=== PATIENT | male | born 1950 | race Caucasian/White ===

== ENCOUNTER → 2016-10-20 | Outpatient (REF) | payer OTHER ==
[2016-10-20 12:15] LABS: MEAN CORPUSCULAR HEMOGLOBIN 32.7 pg (27.0-33.0); MEAN CORPUSCULAR HGB CONC 33.5 g/dl (32.0-36.5); MEAN CORPUSCULAR VOLUME 97.6 fl (80.0-96.0); RED CELL DISTRIBUTION WIDTH 14.6 % (11.5-14.5)
[2016-10-20 12:53] LABS: ALBUMIN 4.3 GM/DL (3.2-5.2); ALBUMIN/GLOBULIN RATIO 1.23 (1.00-1.93); BILIRUBIN,TOTAL 0.8 MG/DL (0.2-1.0); CALCIUM LEVEL 9.9 MG/DL (8.8-10.2); CREATININE FOR GFR 2.2 MG/DL (0.70-1.30); GLOMERULAR FILTRATION RATE 31.9 (>49); POTASSIUM SERUM 4.6 MEQ/L (3.5-5.1); TOTAL PROTEIN 7.8 GM/DL (6.4-8.2); URIC ACID 4.8 MG/DL (3.5-7.2)
== END ==
LOC: M LABDRAW1 11:44
PROVIDERS: ATTEND Family Medicine
DX: I10 Essential (primary) hypertension (principal); M10.9 Gout, unspecified

== ENCOUNTER → 2017-03-17 | Outpatient (REF) | payer OTHER ==
[2017-03-17 12:34] LABS: BASO # 0.1 10^3/uL (0.0-0.2); BASO % 0.7 % (0.0-1.0); EOS # 0.4 10^3/uL (0.0-0.50); IMMATURE GRANULOCYTE % 0.7 % (0-0); LYMPH # 2.2 10^3/uL (1.5-4.5); LYMPH % 23.7 % (24.0-44.0); MEAN CORPUSCULAR HEMOGLOBIN 32.2 pg (27.0-33.0); MEAN CORPUSCULAR HGB CONC 32.8 g/dl (32.0-36.5); MEAN CORPUSCULAR VOLUME 98.2 fl (80.0-96.0); MONO # 0.6 10^3/uL (0.0-0.8); MONO % 6.9 % (0.0-5.0); NEUTROPHILS # 5.9 10^3/uL (1.8-7.7); PLATELET COUNT, AUTOMATED 236 10^3/uL (150-450); WHITE BLOOD COUNT 9.2 10^3/uL (4.0-10.0)
[2017-03-17 13:20] LABS: ALBUMIN 3.9 GM/DL (3.2-5.2); ALBUMIN/GLOBULIN RATIO 1.15 (1.00-1.93); BILIRUBIN,TOTAL 0.7 MG/DL (0.2-1.0); CALCIUM LEVEL 9.6 MG/DL (8.8-10.2); CREATININE FOR GFR 2.11 MG/DL (0.70-1.30); GLOMERULAR FILTRATION RATE 33.5 (>49); TOTAL PROTEIN 7.3 GM/DL (6.4-8.2)
== END ==
LOC: M LABDRAW1 12:02
PROVIDERS: ATTEND Family Medicine
DX: R55 Syncope and collapse (principal)

== ENCOUNTER → 2017-12-18 | Outpatient (REF) | payer OTHER ==
[2017-12-18 12:09] LABS: BASO # 0.1 10^3/uL (0.0-0.2); BASO % 0.6 % (0.0-1.0); EOS # 0.3 10^3/uL (0.0-0.50); EOS % 3.4 % (0.0-3.0); HEMATOCRIT 41.6 % (42.0-52.0); HEMOGLOBIN 13.8 g/dl (13.5-17.5); IMMATURE GRANULOCYTE % 0.5 % (0-3.0); LYMPH # 2.3 10^3/uL (1.5-4.5); LYMPH % 27.7 % (24.0-44.0); MEAN CORPUSCULAR HEMOGLOBIN 31.9 pg (27.0-33.0); MEAN CORPUSCULAR HGB CONC 33.2 g/dl (32.0-36.5); MEAN CORPUSCULAR VOLUME 96.1 fl (80.0-96.0); MONO # 0.5 10^3/uL (0.0-0.8); NEUTROPHILS # 5.1 10^3/uL (1.8-7.7); NEUTROPHILS % 61.8 % (36.0-66.0); PLATELET COUNT, AUTOMATED 180 10^3/uL (150-450); RED BLOOD COUNT 4.33 10^6/uL (4.30-6.10); WHITE BLOOD COUNT 8.2 10^3/uL (4.0-10.0)
[2017-12-18 12:24] LABS: ALBUMIN 3.7 GM/DL (3.2-5.2); ALBUMIN/GLOBULIN RATIO 1.06 (1.00-1.93); ALKALINE PHOSPHATASE 104 U/L (45-117); ALT/SGPT 32 U/L (12-78); ANION GAP 5 MEQ/L (8-16); AST/SGOT 19 U/L (7-37); BILIRUBIN,TOTAL 0.7 MG/DL (0.2-1.0); BLOOD UREA NITROGEN 34 MG/DL (7-18); CALCIUM LEVEL 9.1 MG/DL (8.8-10.2); CARBON DIOXIDE LEVEL 30 MEQ/L (21-32); CHLORIDE LEVEL 109 MEQ/L (98-107); CHOLESTEROL LEVEL 130 MG/DL (<200); CHOLESTEROL RISK RATIO 3.333 (<5); CREATININE FOR GFR 2.13 MG/DL (0.70-1.30); GLOMERULAR FILTRATION RATE 33.1 (>49); GLUCOSE, FASTING 88 MG/DL (70-100); HDL CHOLESTEROL 39 MG/DL (>40); LDL CHOLESTEROL 63.8 MG/DL (<100); NON-HDL-C 91 MG/DL; POTASSIUM SERUM 4.7 MEQ/L (3.5-5.1); SODIUM LEVEL 144 MEQ/L (136-145); TOTAL PROTEIN 7.2 GM/DL (6.4-8.2); TRIGLYCERIDES LEVEL 136 MG/DL (<150); URIC ACID 4.4 MG/DL (3.5-7.2)
== END ==
LOC: M LABDRAW1 10:29
DX: M10.9 Gout, unspecified (principal); I10 Essential (primary) hypertension
CPT/HCPCS: 84550

== ENCOUNTER → 2018-12-20 | Outpatient (REF) | payer OTHER ==
[2018-12-20 14:30] LABS: BASO # 0.1 10^3/uL (0.0-0.2); BASO % 0.5 % (0.0-1.0); EOS # 0.3 10^3/uL (0.0-0.50); EOS % 3.4 % (0.0-3.0); HEMATOCRIT 42.3 % (42.0-52.0); HEMOGLOBIN 13.6 g/dl (13.5-17.5); LYMPH # 2.1 10^3/uL (1.5-4.5); LYMPH % 21.9 % (24.0-44.0); MEAN CORPUSCULAR HEMOGLOBIN 32.6 pg (27.0-33.0); MEAN CORPUSCULAR HGB CONC 32.2 g/dl (32.0-36.5); MEAN CORPUSCULAR VOLUME 101.4 fl (80.0-96.0); MONO # 0.7 10^3/uL (0.0-0.8); NEUTROPHILS # 6.4 10^3/uL (1.8-7.7); NEUTROPHILS % 66.5 % (36.0-66.0); PLATELET COUNT, AUTOMATED 183 10^3/uL (150-450); RED BLOOD COUNT 4.17 10^6/uL (4.30-6.10); WHITE BLOOD COUNT 9.6 10^3/uL (4.0-10.0)
[2018-12-20 14:39] LABS: ALBUMIN 3.9 GM/DL (3.2-5.2); BILIRUBIN,TOTAL 0.8 MG/DL (0.2-1.0); CALCIUM LEVEL 9.6 MG/DL (8.8-10.2); CHOLESTEROL RISK RATIO 3.473 (<5); CREATININE FOR GFR 2.52 MG/DL (0.70-1.30); GLOMERULAR FILTRATION RATE 27.1 (>49); POTASSIUM SERUM 5.4 MEQ/L (3.5-5.1); PROSTATIC SPECIFIC AG MONITOR 1.25 NG/ML (< 4.00); TOTAL PROTEIN 7.4 GM/DL (6.4-8.2)
== END ==
LOC: M LABDRAW1 14:00
PROVIDERS: ATTEND Family Medicine
DX: Z12.5 Encounter for screening for malignant neoplasm of prostate (principal); I10 Essential (primary) hypertension; M10.9 Gout, unspecified

== ENCOUNTER → 2019-02-23 | Outpatient (CLI) | payer MEDICARE ==
--- NOTE | 2019-02-23 15:54 | REP ---
RENAL NUCLEAR SCAN WITH FLOW AND FUNCTION: Following the intravenous administration of 8.0 mCi of technetium-99m MAG 3 immediate flow images are obtained in the posterior projection showing somewhat greater degree of perfusion of right kidney compared to the left. Delayed renal function images are performed every minute for a period of 30 minutes. No cortical defect is seen. There is bilateral excretion in a fairly symmetrical pattern without evidence of significant hydronephrosis. There is bilateral symmetrical washout. Split function is 40.3% on the left and 59.7% on the right. Time to peak is 4 minutes bilaterally which is slightly delayed. T1/2 is 26 minutes on the left and 25.5 minutes on the right, both values elevated above normal of 11 minutes. Renal function curves are mildly shallow in their downward slopes. There is mild postvoid residual in the urinary bladder after voiding. IMPRESSION: No evidence of urinary tract obstruction. Mildly compromised renal function bilaterally. Electronically Signed by Dillon Alvarez MD 02/25/2019 01:00 A
--- NOTE | 2019-02-23 18:29 | REP ---
Clinical: Chronic renal disease and hypertension. Technique: Real time barger scale ultrasound examination using curved array transducer. Findings: Bilateral kidneys appear mildly atrophic with cortical thinning and increased central sinus fat. No hydronephrosis, nephrolithiasis, or mass lesion appreciated. The right kidney measures 9.3 x 5.1 x 5.8 cm and includes 9 mm mid/upper pole cyst, 1.3 cm mid pole cortical cyst, and 2.2 cm medial lower pole hypoechoic area of uncertain etiology. The left kidney measures 10.1 x 4.2 x 6.0 cm and includes a 8 mm cortical cyst. Bladder is grossly unremarkable. Impression: Evidence for chronic medical renal disease with few scattered subcentimeter cysts and 2.2 cm hypoechoic area in the mid pole right kidney which may represent complex cyst, but further investigation including pre and postcontrast CT may be warranted. Electronically Signed by Ross Latif MD 02/23/2019 06:21 P
== END ==
LOC: M RAD 12:36
PROVIDERS: ATTEND Internal Medicine Nephrology
DX: N28.1 Cyst of kidney, acquired (principal); N18.4 Chronic kidney disease, stage 4 (severe); I15.0 Renovascular hypertension
CPT/HCPCS: 76775; 78707; A9562

== ENCOUNTER → 2019-12-16 | Outpatient (REF) | payer MEDICARE ==
[~2019-12-16] MED LIST: ATOR1TAB21 PO; GABA600T4 PO; LISI20TA35 PO; MAGN400T14 PO; METO1TAB7 PO; ZYLO300T6 PO
[2020-02-02 18:49] LABS: HEMATOCRIT 40.9 % (42.0-52.0); HEMOGLOBIN 13.2 g/dl (13.5-17.5); MEAN CORPUSCULAR HEMOGLOBIN 32.3 pg (27.0-33.0); MEAN CORPUSCULAR HGB CONC 32.3 g/dl (32.0-36.5); PLATELET COUNT, AUTOMATED 185 10^3/uL (150-450); RED BLOOD COUNT 4.09 10^6/uL (4.30-6.10)
[2020-02-10 16:45] LABS: BILIRUBIN,TOTAL 0.6 MG/DL (0.2-1.0); CALCIUM LEVEL 9.9 MG/DL (8.8-10.2); CHOLESTEROL RISK RATIO 4.937 (<5); CREATININE FOR GFR 2.54 MG/DL (0.70-1.30); GLOMERULAR FILTRATION RATE 26.8 (>42); MAGNESIUM LEVEL 2.1 MG/DL (1.8-2.4); POTASSIUM SERUM 4.8 MEQ/L (3.5-5.1); TOTAL PROTEIN 7.6 GM/DL (6.4-8.2); URIC ACID 5.7 MG/DL (3.5-7.2)
== END ==
LOC: M LABWUC 07:46
PROVIDERS: ATTEND Family Medicine
DX: E78.5 Hyperlipidemia, unspecified (principal); M10.9 Gout, unspecified; E61.2 Magnesium deficiency; I10 Essential (primary) hypertension

== ENCOUNTER 2020-02-02 17:29 | Emergency (ER) | payer MEDICARE ==
[~2020-02-02] VITALS: Ht 180.3 cm; Wt 104.5 kg
[2020-02-02] MEDS ORDERED: ATOR1TAB21 PO (17:41)
[2020-02-02] MEDS ORDERED: METO1TAB7 PO (17:41)
[2020-02-02] MEDS ORDERED: GABA600T4 PO (17:41)
[2020-02-02] MEDS ORDERED: LISI20TA35 PO (17:41)
[2020-02-02] MEDS ORDERED: ZYLO300T6 PO (17:41)
[2020-02-02] MEDS ORDERED: MAGN400T14 PO (17:44)
--- NOTE | 2020-02-02 19:13 | REPVR ---
PROCEDURE INFORMATION: Exam: XR Right Femur Exam date and time: 02/02/2020 6:35 PM Age: 69 years old Clinical indication: Injury or trauma; Fall; Sprain or strain; Thigh or upper leg; Right; Additional info: Fall, bony tenderness TECHNIQUE: Imaging protocol: XR Right femur. Views: 2 views. COMPARISON: No relevant prior studies available. FINDINGS: Bones/joints: Unremarkable. No acute fracture. Soft tissues: Unremarkable. IMPRESSION: No acute findings. Electronically signed by: Jacob Cowan On 02/02/2020 19:12:30 PM
[2020-02-02 19:39] VITALS: BP 130/63
== END 2020-02-02 19:46 | disposition home or self-care (01) ==
LOC: M ED 17:29
DX: M25.551 Pain in right hip (principal); M79.651 Pain in right thigh; W10.8XXA Fall (on) (from) other stairs and steps, initial encounter; Y92.098 Other place in other non-institutional residence as the place of occurrence of the external cause; Y93.01 Activity, walking, marching and hiking; Y99.8 Other external cause status; I10 Essential (primary) hypertension; Z79.899 Other long term (current) drug therapy

== ENCOUNTER → 2020-02-17 | Outpatient (CLI) | payer MEDICARE ==
--- NOTE | 2020-02-17 12:25 | REPVR ---
PROCEDURE INFORMATION: Exam: US Duplex Right Lower Extremity Veins, Limited Exam date and time: 02/17/2020 12:02 PM Age: 69 years old Clinical indication: Pain; Leg, lower; Right; Additional info: Edema, pain in right leg; rule out DVT, fell 2 weeks ago TECHNIQUE: Imaging protocol: Real-time Duplex ultrasound of the Right Lower Extremity with 2-D barger scale, color Doppler flow and spectral waveform analysis with image documentation. Limited exam was focused on the right lower extremity veins. COMPARISON: No relevant prior studies available. FINDINGS: Right deep veins: The common femoral, femoral, and popliteal veins are patent without thrombus. Normal compressibility and/or augmentation response. Right superficial veins: The saphenofemoral junction is patent without thrombus. Soft tissues: Unremarkable. IMPRESSION: No evidence of deep vein thrombosis in the visualized lower extremity. Electronically signed by: Neo Quintero On 02/17/2020 12:25:24 PM
== END ==
LOC: M RAD 11:31
PROVIDERS: ATTEND Family Medicine
DX: R60.9 Edema, unspecified (principal); M79.601 Pain in right arm

== ENCOUNTER → 2020-04-13 | Outpatient (CLI) | payer MEDICARE ==
--- NOTE | 2020-04-13 08:30 | REP ---
INDICATION: CKD STAGE 4. COMPARISON: Comparison urinary tract sonography February 23, 2019.. TECHNIQUE: Urinary tract sonography. FINDINGS: Urinary bladder is largely empty at the time of scanning.. Renal cortical echogenicity pattern is normal bilaterally and contours are smooth. There are bilateral small renal cortical cysts. No evidence of hydronephrosis mass or calculus is seen.. The right kidney measures 9.4 x 4.8 x 5.2 cm. Left renal dimensions are 10.3 x 4.0 x 5.8 cm. There are multiple upper pole cysts on the left ranging in size up to 1.5 cm in greatest diameter. In the right kidney there are 3 identified as cysts in the upper pole the largest of which measures 2.0 cm in greatest diameter IMPRESSION: Bilateral small renal cortical cysts. Otherwise negative. No other significant change.. <Electronically signed by Lawrence Retana > 04/13/20 [id number]
== END ==
LOC: M RAD 07:29
PROVIDERS: ATTEND Internal Medicine Nephrology
DX: N28.1 Cyst of kidney, acquired (principal); N18.4 Chronic kidney disease, stage 4 (severe)

== ENCOUNTER → 2021-05-01 | Outpatient (CLI) | payer MEDICARE ==
[~2021-05-01] MED LIST changes: +ALLO300T2 PO; +CARB1TAB20 PO; +MAGN400T35 PO; +META1TAB22 PO
== END ==
LOC: M LABSMTC 09:37
PROVIDERS: ATTEND Anesthesiology
DX: Z01.818 Encounter for other preprocedural examination (principal); Z11.52 Encounter for screening for COVID-19

== ENCOUNTER 2021-05-06 10:09 | Day surgery (SDC) | payer MEDICARE ==
[~2021-05-06] VITALS: Ht 180.3 cm; Wt 107.2 kg
[~2021-05-06 10:09] MED LIST changes: +NS 1,000 ML IV ONE
--- NOTE | 2021-05-06 12:14 | ROOR ---
Patient Name: Blair Bergman Procedure Date: 05/06/2021 11:52 AM Date of : 1950 Age: 70 Room: [facility] Gender: Male Note Status: Finalized Procedure: Total Colonoscopy to Cecum + Cold Snare Polypectomy + ileoscopy Indications: Screening for colorectal malignant neoplasm Providers: Lam Garza MD Referring MD: Attila Moreno MD Requesting Provider: Medicines: Monitored Anesthesia Care Complications: No immediate complications. Procedure: Pre-Anesthesia Assessment: - The heart rate, respiratory rate, oxygen saturations, blood pressure, adequacy of pulmonary ventilation, and response to care were monitored throughout the procedure. The Colonoscope was introduced through the anus and advanced to the terminal ileum, with identification of the appendiceal orifice and IC valve. The colonoscopy was performed without difficulty. The patient tolerated the procedure well. The quality of the bowel preparation was excellent. Findings: The perianal and digital rectal examinations were normal. Non-bleeding internal hemorrhoids were found during retroflexion. The hemorrhoids were small and Grade I (internal hemorrhoids that do not prolapse). A small polyp was found in the ascending colon. The polyp was sessile. The polyp was removed with a cold snare. Resection and retrieval were complete. The terminal ileum appeared normal. The exam was otherwise without abnormality on direct and retroflexion views. Impression: - Non-bleeding internal hemorrhoids. - One small polyp in the ascending colon, removed with a cold snare. Resected and retrieved. - The examined portion of the ileum was normal. - The examination was otherwise normal on direct and retroflexion views. - The exam was otherwise normal to the cecum. Recommendation: - Patient has a contact number available for emergencies. The signs and symptoms of potential delayed complications were discussed with the patient. Return to normal activities tomorrow. Written discharge instructions were provided to the patient. - High fiber diet. - Discharge patient to home. - Continue present medications. - Await pathology results. - Telephone GI clinic for pathology results in 1 week. - Repeat colonoscopy in 5 years for surveillance based on pathology results. - Return to referring physician. - The findings and recommendations were discussed with the patient. Procedure Code(s): --- Professional --- 64741, Colonoscopy, flexible; with removal of tumor(s), polyp(s), or other lesion(s) by snare technique Diagnosis Code(s): --- Professional --- Z12.11, Encounter for screening for malignant neoplasm of colon K64.0, First degree hemorrhoids K63.5, Polyp of colon CPT copyright 2019 [employer]. All rights reserved. The codes documented in this report are preliminary and upon statistician applied review may be revised to meet current compliance requirements. Lam Garza MD Lam Garza MD 05/06/2021 12:13:42 PM Electronically signed by Lam Garza MD Number of Addenda: 0 Note Initiated On: 05/06/2021 11:52 AM Estimated Blood Loss: Estimated blood loss: none.
[2021-05-06] MEDS ORDERED: LIDOCAINE 2% 100MG/5ML SDV (FOR ANES.) As Ordered ONE (12:16)
[2021-05-06] MEDS ORDERED: propofoL 200 MG/20 ML VIAL As Ordered ONE (12:16)
[2021-05-06 12:30] VITALS: BP 111/59
== END 2021-05-06 12:49 | disposition home or self-care (01) ==
LOC: M OPP 10:09
PROVIDERS: ATTEND Internal Medicine Gastroenterology
DX: Z12.11 Encounter for screening for malignant neoplasm of colon (principal); D12.6 Benign neoplasm of colon, unspecified; K64.0 First degree hemorrhoids; Z79.899 Other long term (current) drug therapy

== ENCOUNTER → 2021-10-14 | Outpatient (REF) | payer MEDICARE ==
[~2021-10-14] MED LIST changes: -NS 1,000 ML IV ONE
== END ==
LOC: M SFHCDERM 14:55
PROVIDERS: ATTEND Nurse Practitioner Family
DX: C44.622 Squamous cell carcinoma of skin of right upper limb, including shoulder (principal)

== ENCOUNTER → 2022-01-02 | Outpatient (REF) | payer MEDICARE | LOC: M SFHCDERM 16:46 | PROVIDERS: ATTEND Dermatology | DX: C44.622 Squamous cell carcinoma of skin of right upper limb, including shoulder (principal) ==

== ENCOUNTER → 2022-01-07 | Outpatient (CLI) | payer MEDICARE | LOC: M ONCR 14:48 | PROVIDERS: ATTEND General Practice | DX: C44.622 Squamous cell carcinoma of skin of right upper limb, including shoulder (principal); E78.5 Hyperlipidemia, unspecified; I10 Essential (primary) hypertension; M10.9 Gout, unspecified; Z79.899 Other long term (current) drug therapy; Z94.5 Skin transplant status ==

== ENCOUNTER → 2022-01-31 | Outpatient (RCR) | payer MEDICARE | LOC: M ONCR 01-15 07:13 | PROVIDERS: ATTEND General Practice | DX: C44.622 Squamous cell carcinoma of skin of right upper limb, including shoulder (principal) ==

== ENCOUNTER 2022-03-03 14:34 | Outpatient (RCR) | payer MEDICARE | END 2022-03-03 23:59 | disposition home or self-care (01) | LOC: M ONCR 14:34 | PROVIDERS: ATTEND General Practice | DX: C44.622 Squamous cell carcinoma of skin of right upper limb, including shoulder (principal) ==

== ENCOUNTER 2022-03-04 14:44 | Outpatient (RCR) | payer MEDICARE | END 2022-04-02 | LOC: M ONCR 14:44 | PROVIDERS: ATTEND General Practice | DX: C44.622 Squamous cell carcinoma of skin of right upper limb, including shoulder (principal) ==

== ENCOUNTER → 2022-04-04 | Outpatient (CLI) | payer MEDICARE | LOC: M ONCR 13:15 | PROVIDERS: ATTEND General Practice | DX: C44.622 Squamous cell carcinoma of skin of right upper limb, including shoulder (principal); Z92.3 Personal history of irradiation ==

== ENCOUNTER → 2022-06-10 | Outpatient (REF) | payer MEDICARE | LOC: M SFHCDERM 14:14 | PROVIDERS: ATTEND Physician Assistant | DX: L82.1 Other seborrheic keratosis (principal); L57.0 Actinic keratosis; Z12.83 Encounter for screening for malignant neoplasm of skin; Z85.89 Personal history of malignant neoplasm of other organs and systems; D18.01 Hemangioma of skin and subcutaneous tissue | CPT/HCPCS: 11102; 17000; 17003; 88305; G0463 ==

== ENCOUNTER → 2022-09-05 | Outpatient (CLI) | payer MEDICARE | LOC: M ONCR 13:05 | PROVIDERS: ATTEND General Practice | DX: Z08 Encounter for follow-up examination after completed treatment for malignant neoplasm (principal); Z85.828 Personal history of other malignant neoplasm of skin; Z79.899 Other long term (current) drug therapy; Z92.3 Personal history of irradiation; Z92.89 Personal history of other medical treatment ==

== ENCOUNTER → 2023-07-08 | Outpatient (REF) | payer MEDICARE ==
[2023-07-08 15:10] LABS: CHOLESTEROL RISK RATIO 4.15 (<5); LDL CHOLESTEROL 76.4 MG/DL (<100)
== END ==
LOC: M LABWUC 12:26
PROVIDERS: ATTEND Family Medicine
DX: E78.5 Hyperlipidemia, unspecified (principal)

== ENCOUNTER 2024-12-29 15:43 | Emergency (ER) | payer MEDICARE ==
[~2024-12-29] VITALS: Ht 180.3 cm; Wt 104.5 kg
[~2024-12-29 15:43] MED LIST changes: +GABA-1490 PO; -GABA600T4 PO; +META-10 PO; -META1TAB22 PO
[2024-12-29] MEDS: ACETAMINOPHEN 500 MG TAB PO ONE (17:21)
[2024-12-29] MEDS ORDERED: ROLLMIS8 XX (17:21)
[2024-12-29 17:31] VITALS: BP 139/65; TEMP 97.8; O2SAT 97
[2024-12-29] MEDS: TETANUS/DIPHTH/ACEL. PERTUSSIS 0.5 ML SYR IM.IMMUN ONE (17:32)
== END 2024-12-29 17:39 | disposition home or self-care (01) ==
LOC: M ED 15:43
DX: S80.212A Abrasion, left knee, initial encounter (principal); W10.8XXA Fall (on) (from) other stairs and steps, initial encounter; Y92.009 Unspecified place in unspecified non-institutional (private) residence as the place of occurrence of the external cause; Y93.89 Activity, other specified; Y99.9 Unspecified external cause status; R26.9 Unspecified abnormalities of gait and mobility; N18.4 Chronic kidney disease, stage 4 (severe); G62.9 Polyneuropathy, unspecified; Z23 Encounter for immunization

== ENCOUNTER → 2025-03-20 | Outpatient (CLI) | payer MEDICARE ==
[~2025-03-20] MED LIST changes: +CARB-19 PO; -CARB1TAB20 PO; +ROLLMIS8 XX
== END ==
LOC: M CARPUL 09:11
PROVIDERS: ATTEND Family Medicine
DX: R01.1 Cardiac murmur, unspecified (principal)